=== PATIENT | male | born 1970 | race Caucasian/White ===

== ENCOUNTER 2022-01-17 12:41 | Emergency (ER) | payer OTHER ==
[~2022-01-17] VITALS: Ht 165.1 cm; Wt 121.6 kg
--- NOTE | 2022-01-17 12:58 | NUR ---
[id number]. NO SHOW.
[2022-01-17 13:29] VITALS: BP 156/90
== END 2022-01-17 15:15 | disposition left against medical advice (07) ==
LOC: MED 12:41
DX: R21 Rash and other nonspecific skin eruption (principal); Z53.21 Procedure and treatment not carried out due to patient leaving prior to being seen by health care provider